=== PATIENT | male | born 1975 ===

== ENCOUNTER 2016-12-18 12:02 | Emergency (ER) | payer SELFPAY ==
[~2016-12-18] VITALS: Ht 170.2 cm; Wt 101.2 kg
[2016-12-18 12:08] VITALS: BP 119/62
== END 2016-12-18 12:33 | disposition left against medical advice (07) ==
LOC: ED 12:02
DX: Z53.21 Procedure and treatment not carried out due to patient leaving prior to being seen by health care provider (principal)